=== PATIENT | female | born 1965 | race Caucasian/White ===

== ENCOUNTER 2018-05-05 12:57 | Inpatient (IN) | END 2018-05-07 17:55 | disposition home health service (06) | DRG 300 ==

== ENCOUNTER 2018-05-13 15:14 | Outpatient (CLI) | END 2018-05-13 16:42 | disposition home or self-care (01) ==

== ENCOUNTER 2018-11-08 14:11 | Emergency (ER) | payer OTHER ==
[~2018-11-08] VITALS: Wt 113.6 kg
[~2018-11-08 14:11] MED LIST: DOCU-216 PO; HYDR-3601 PO; POLY17PO3 PO; SILV20CR12 TOP; SODI473S16 IRR; WARF6TAB48 PO
[2018-11-08 14:13] VITALS: BP 139/75; PULSE 65; RESP 20; Wt 113.6 kg
[2018-11-08] MEDS ORDERED: CEPH-443 PO (15:51)
--- NOTE | 2018-11-08 15:58 | ERD ---
ER Documentation Chief Complaint Chief Complaint wound to l. foot w burning, previous hx of cellulitis to same site HPI 52-year-old female patient past medical history of chronic venous stasis presents to the ED complaining of an ulcer that she has developed to her left lower extremity that started about 3 weeks ago. She has been followed up for her chronic ulcer of her right lower extremity and patient reports that she has been applying Santyl ointment and feels like the left leg has not gotten better, however the right leg has gotten better. Patient reports that this is new and has not followed up with amputation center. Patient denies having any fever, increased redness or swelling. States that she was not able to get an appointment with Dr. Reese today. ROS All systems reviewed and are negative except as per history of present illness. Medications Home Meds Active Scripts Cephalexin* (Keflex*) 500 Mg Capsule, 500 MG PO QID for 7 Days, CAP Prov:NILDA BLAIR PA-C 11/08/18 Silver Sulfadiazine* (Silvadene*) 1% - 20 Gm Cream.gm., 1 APPLIC TOP DAILY for 30 Days, #1 TUB 3 Refills Prov:NAY COBB MD 05/07/18 Polyethylene Glycol* (Polyethylene Glycol*) 17 Gm Powd.pack, 17 GM PO DAILY for 30 Days, #30 PACKET Prov:NAY COBB MD 05/07/18 Docusate Sodium (Dok) 100 Mg Capsule, 100 MG PO BID PRN for Constipation for 30 Days, #60 CAP Prov:NAY COBB MD 05/07/18 Sodium Hypochlorite (H-CHLOR 12) 473 Ml Solution, 1 APPLIC IRR DAILY for 30 Days, #1 BOTTLE 3 Refills Prov:NAY COBB MD 05/07/18 Hydrocodone Bit-Acetaminophen (Hydrocodone Bit-APAP) 5-325MG Tablet, 1 TAB PO Q4H PRN for PAIN LEVEL 4-6 for 10 Days, #30 TAB Prov:NAY COBB MD 05/07/18 Reported Medications Warfarin Sodium* (Warfarin Sodium*) 6 Mg Tablet, 9 MG PO DAILY, TAB 05/03/18 Allergies Allergies: Coded Allergies: No Known Allergy (Unverified , 05/03/18) PMhx/Soc History of Surgery: Yes (SKIN GRAFT) Anesthesia Reaction: No Hx Neurological Disorder: No Hx Respiratory Disorders: No Hx Cardiac Disorders: No Hx Psychiatric Problems: No Hx Miscellaneous Medical Probl: Yes (DVT, varices) Hx Alcohol Use: No Hx Substance Use: No Hx Tobacco Use: No Smoking Status: Never smoker FmHx Family History: No diabetes, No coronary disease Physical Exam Vitals Vital Signs Date Temp Pulse Resp B/P (MAP) Pulse Ox O2 O2 Flow FiO2 Time Delivery Rate 11/08/18 98.9 65 20 139/75 98 14:13 (96) Physical Exam Const: [id number], well-nourished. In no acute distress. Head: Atraumatic, normocephalic Eyes: Normal Conjunctiva without injection ENT: Normal external ear, nose and mouth. Neck: Full range of motion. No meningismus. Resp: Clear to auscultation bilaterally. No wheezing, rhonchi, rales, or crackles. No accessory muscle use. No retractions. Cardio: Regular rate and rhythm, no murmurs Skin: No petechiae or rashes Back: No midline tenderness. No CVA tenderness. Ext: No cyanosis, or edema. Cap refill less than 2 seconds. Distal pulses intact bilaterally. 5 cm x 4 cm ulcer noted of the left lower extremity with no surrounding erythema, warmth to touch. No purulent discharge noted. Full range of motion of the bilateral knees, bilateral ankles. Neur: Awake and alert. Normal gait and coordination. Muscle strength 5/5. Sensation intact bilaterally. Psych: Normal Mood and Affect Procedures/MDM 52-year-old female patient with a past medical history of chronic venous disease presents the ED complaining of left ulcer noted on her leg. Patient is afebrile and nontoxic-appearing. There is no surrounding erythema, purulent discharge, calf pain, no cords noted. Patient likely has a venous ulcer. Patient's extremity symptoms have stabilized while they have been evaluated in the department and are appropriate for outpatient follow up. No evidence of fractures, dislocations, compartment syndrome, neurologic injury, vascular injury, open joint, open fracture, tendon laceration, septic arthritis, osteomyelitis, DVT, foreign body, or other emergent conditions. Diagnosis: Leg Leg Ulcer Discharge medications: Keflex Follow up with primary care physician in 1-2 days. Instructed patient to return to the ED sooner for any worsening symptoms. Patient's questions were answered. Patient is hemodynamically stable. Patient understood and agreed with discharge plan. Patient discharged stable. Disclaimer: Inadvertent spelling and grammatical errors are likely due to EHR/dictation software use and do not reflect on the overall quality of patient care. Also, please note that the electronic time recorded on this note does not necessarily reflect the actual time of the patient encounter. Departure Diagnosis: Primary Impression: Leg ulcer, left Non-pressure ulcer stage: unspecified non-pressure ulcer stage Qualified Codes: L97.929 - Non-pressure chronic ulcer of unspecified part of left lower leg with unspecified severity Condition: Stable Patient Instructions: Venous Leg Ulcer Referrals: MAXWELL REESE M.D. [facility] YOU HAVE RECEIVED A MEDICAL SCREENING EXAM AND THE RESULTS INDICATE THAT YOU DO NOT HAVE A CONDITION THAT REQUIRES URGENT TREATMENT IN THE EMERGENCY DEPARTMENT. FURTHER EVALUATION AND TREATMENT OF YOUR CONDITION CAN WAIT UNTIL YOU ARE SEEN IN YOUR DOCTORS OFFICE WITHIN THE NEXT 1-2 DAYS. IT IS YOUR RESPONSIBILITY TO MAKE AN APPOINTMENT FOR FOLOW-UP CARE. IF YOU HAVE A PRIMARY DOCTOR --you should call your primary doctor and schedule an appointment IF YOU DO NOT HAVE A PRIMARY DOCTOR YOU CAN CALL OUR PHYSICIAN REFERRAL HOTLINE AT IF YOU CAN NOT AFFORD TO SEE A PHYSICIAN YOU CAN CHOSE FROM THE FOLLOWING [facility] [address] [facility]. [facility] [address] [facility] [facility] [address] [facility] [facility] [address] [facility] [address] [facility]. [facility]. [address] [facility]. [facility] YOU HAVE RECEIVED A MEDICAL SCREENING EXAM AND THE RESULTS INDICATE THAT YOU DO NOT HAVE A CONDITION THAT REQUIRES URGENT TREATMENT IN THE EMERGENCY DEPARTMENT. FURTHER EVALUATION AND TREATMENT OF YOUR CONDITION CAN WAIT UNTIL YOU ARE SEEN I N YOUR DOCTORS OFFICE WITHIN THE NEXT 1-2 DAYS. IT IS YOUR RESPONSIBILITY TO MAKE AN APPOINTMENT FOR FOLOW-UP CARE. IF YOU HAVE A PRIMARY DOCTOR --you should call your primary doctor and schedule and appointment IF YOU DO NOT HAVE A PRIMARY DOCTOR YOU CAN CALL OUR PHYSICIAN REFERRAL HOTLINE AT . IF YOU CAN NOT AFFORD TO SEE A PHYSICIAN YOU CAN CHOSE FROM THE FOLLOWING [facility] INSTITUTIONS: [facility] [address] [place] [address] [facility] [address] [place] [address] [facility] [address] [place] [address] [facility] Additional Instructions: Llame al doctor MAANA y radha jacqueline NAZARIO PARA DENTRO DE 2-3 SULLIVAN.Dgale a la secretaria que nosotros le instruimos hacer esta nazario.Avise o llame si law condicin se empeora antes de la nazario. Regresa aqui si peor o no mejor. NILDA BLAIR PA-C Nov 08, 2018 15:58
== END 2018-11-08 15:59 | disposition home or self-care (01) ==
LOC: FTE 14:11
DX: L97.929 Non-pressure chronic ulcer of unspecified part of left lower leg with unspecified severity (principal)
CPT/HCPCS: 99283

== ENCOUNTER 2018-11-15 08:56 | Emergency (ER) | payer OTHER ==
[~2018-11-15] VITALS: Ht 152.4 cm; Wt 111.9 kg
[~2018-11-15 08:56] MED LIST changes: +CEPH-443 PO; +POLY17PO28 PO; -POLY17PO3 PO
[2018-11-15 09:00] VITALS: BP 171/94; PULSE 70; RESP 18; Ht 152.4 cm; Wt 111.9 kg
[2018-11-15] MEDS ORDERED: TRAM50TA2 PO (10:22)
--- NOTE | 2018-11-15 10:24 | ERD ---
ER Documentation Chief Complaint Chief Complaint left leg pain hx varicose veins HPI This 52-year-old female presents with a history of chronic left lower extremity ulcer. She is under the care of amputation prevention center. She complains of pain. She denies any fevers, worsening redness, bleeding or discharge. She is taking Keflex and Naprosyn. ROS All systems reviewed and are negative except as per history of present illness. Medications Home Meds Active Scripts Tramadol HCl (Tramadol HCl) 50 Mg Tablet, 50 MG PO Q4 PRN for PAIN, #18 TAB Prov:DELICIA STUART MD 11/15/18 Cephalexin* (Keflex*) 500 Mg Capsule, 500 MG PO QID for 7 Days, CAP Prov:NILDA BLAIR PA-C 11/08/18 Silver Sulfadiazine* (Silvadene*) 1% - 20 Gm Cream.gm., 1 APPLIC TOP DAILY for 30 Days, #1 TUB 3 Refills Prov:NAY COBB MD 05/07/18 Polyethylene Glycol* (Polyethylene Glycol*) 17 Gm Powd.pack, 17 GM PO DAILY for 30 Days, #30 PACKET Prov:NAY COBB MD 05/07/18 Docusate Sodium (Dok) 100 Mg Capsule, 100 MG PO BID PRN for Constipation for 30 Days, #60 CAP Prov:NAY COBB MD 05/07/18 Sodium Hypochlorite (H-CHLOR 12) 473 Ml Solution, 1 APPLIC IRR DAILY for 30 Days, #1 BOTTLE 3 Refills Prov:NAY COBB MD 05/07/18 Hydrocodone Bit-Acetaminophen (Hydrocodone Bit-APAP) 5-325MG Tablet, 1 TAB PO Q4H PRN for PAIN LEVEL 4-6 for 10 Days, #30 TAB Prov:NAY COBB MD 05/07/18 Reported Medications Warfarin Sodium* (Warfarin Sodium*) 6 Mg Tablet, 9 MG PO DAILY, TAB 05/03/18 Allergies Allergies: Coded Allergies: No Known Allergy (Unverified , 11/15/18) PMhx/Soc History of Surgery: Yes (SKIN GRAFT) Anesthesia Reaction: No Hx Neurological Disorder: No Hx Respiratory Disorders: No Hx Cardiac Disorders: No Hx Psychiatric Problems: No Hx Miscellaneous Medical Probl: Yes (DVT, varices) Hx Alcohol Use: No Hx Substance Use: No Hx Tobacco Use: No Smoking Status: Never smoker FmHx Family History: No diabetes, No coronary disease, No other Physical Exam Vitals Vital Signs Date Temp Pulse Resp B/P (MAP) Pulse Ox O2 O2 Flow FiO2 Time Delivery Rate 11/15/18 97.1 70 18 171/94 98 09:00 (119) Physical Exam Const: No acute distress Head: Atraumatic Eyes: Normal Conjunctiva ENT: Normal External Ears, Nose and Mouth. Neck: Full range of motion. No meningismus. Resp: Clear to auscultation bilaterally Cardio: Regular rate and rhythm, no murmurs Abd: Soft, non tender, non distended. Normal bowel sounds Skin: No petechiae or rashes. left medial lower extremity ulcer approximate stage III in the area of the distal tibia. No significant erythema, streaking, induration. Wound bed is healing with fibrin exudate without bleeding, purulent discharge. Back: No midline or flank tenderness Ext: No cyanosis, or edema Neur: Awake and alert Psych: Normal Mood and Affect Procedures/MDM She presents with what appears to be a satisfactorily healing left lower extremity venous stasis ulcer without signs of significant cellulitis, ischemia, deficits, necrotizing fasciitis. She will be discharged home after wound care here and redressing. She is advised to continue Keflex and regular wound care with her primary doctor and specialist. We will add tramadol for her primary complaints of pain. The patient was stable with no new complaints during the ER course. Clinically, there is no current evidence to suggest meningitis, sepsis, acute abdomen, pneumonia, stroke, acute coronary syndrome, pulmonary embolism, aortic dissection or any other emergent condition appearing to require further evaluation or hospitalization. Patient counseled regarding my diagnostic impression and care plan. Prior to discharge all questions answered. Pt agrees with treatment plan and understands strict return precautions. Pt is instructed to follow up with primary care provider within 24-48 hours. Precautionary instructions provided including instructions to return to the ER if not improving or for any worsening or changing symptoms or concerns. Departure Diagnosis: Primary Impression: Venous stasis ulcer Venous stasis ulcer site: other site Varicose vein presence: without v aricose veins Non-pressure ulcer stage: with fat layer exposed Qualified Codes: I87.2 - Venous insufficiency (chronic) (peripheral); L97.802 - Non- pressure chronic ulcer of other part of unspecified lower leg with fat layer exposed Condition: Stable Patient Instructions: Venous Leg Ulcer Additional Instructions: contiuna carlos manuel con specialistas de ulcuras. Cheque otro vez con law doctor primario en el proximo stevenson or regresa para mas o nueva simptomas. DELICIA STUART MD Nov 15, 2018 10:24
== END 2018-11-15 10:36 | disposition home or self-care (01) ==
LOC: FTE 08:56
DX: I87.2 Venous insufficiency (chronic) (peripheral) (principal); L97.802 Non-pressure chronic ulcer of other part of unspecified lower leg with fat layer exposed
CPT/HCPCS: 99283

== ENCOUNTER 2019-03-23 15:58 | Emergency (ER) | payer OTHER ==
[~2019-03-23] VITALS: Ht 162.6 cm; Wt 106.5 kg
[~2019-03-23 15:58] MED LIST changes: +TRAM50TA2 PO
[2019-03-23 16:00] VITALS: BP 137/67; PULSE 61; RESP 20; Ht 162.6 cm; Wt 106.5 kg
[2019-03-23] MEDS ORDERED: CLOT30CR24 TOP (16:37)
--- NOTE | 2019-03-23 16:47 | ERD ---
ER Documentation Chief Complaint Chief Complaint c/o generalized rash x4 days. No stridor. HPI Patient is a 53-year-old female with past medical history of DVT, currently on Coumadin, who presents the ER for concerns of a rash for the last 4 days. Patient states rash is below her bilateral breasts and in her axilla. Patient states the rash is itchy new creams or lotions. Patient denies any recent travel.. Patient denies any fevers or chills. Patient denies any lip swelling, tongue swelling, difficulty breathing, chest pain, chest tightness or LOC. Patient states Dr. Arthur is her primary care doctor he is managing her INR levels. Last INR check was 2 weeks ago. ROS All systems reviewed and are negative except as per history of present illness. Medications Home Meds Active Scripts Clotrimazole* (Clotrimazole* AF) 1% - 30 Gm Cream.gm., 1 APPLIC TOP BID for 7 Days, TUB Prov:AZIZA DEL RIO PA-C 03/23/19 Tramadol HCl (Tramadol HCl) 50 Mg Tablet, 50 MG PO Q4 PRN for PAIN, #18 TAB Prov:DELICIA STUART MD 11/15/18 Cephalexin* (Keflex*) 500 Mg Capsule, 500 MG PO QID for 7 Days, CAP Prov:NILDA BLAIR PA-C 11/08/18 Silver Sulfadiazine* (Silvadene*) 1% - 20 Gm Cream.gm., 1 APPLIC TOP DAILY for 30 Days, #1 TUB 3 Refills Prov:NAY COBB MD 05/07/18 Polyethylene Glycol* (Polyethylene Glycol*) 17 Gm Powd.pack, 17 GM PO DAILY for 30 Days, #30 PACKET Prov:NAY COBB MD 05/07/18 Docusate Sodium (Dok) 100 Mg Capsule, 100 MG PO BID PRN for Constipation for 30 Days, #60 CAP Prov:NAY COBB MD 05/07/18 Sodium Hypochlorite (H-CHLOR 12) 473 Ml Solution, 1 APPLIC IRR DAILY for 30 Days, #1 BOTTLE 3 Refills Prov:NAY COBB MD 05/07/18 Hydrocodone Bit-Acetaminophen (Hydrocodone Bit-APAP) 5-325MG Tablet, 1 TAB PO Q4H PRN for PAIN LEVEL 4-6 for 10 Days, #30 TAB Prov:NAY COBB MD 05/07/18 Reported Medications Warfarin Sodium* (Warfarin Sodium*) 6 Mg Tablet, 9 MG PO DAILY, TAB 05/03/18 Allergies Allergies: Coded Allergies: No Known Allergy (Unverified , 11/15/18) PMhx/Soc History of Surgery: Yes (SKIN GRAFT) Anesthesia Reaction: No Hx Neurological Disorder: No Hx Respiratory Disorders: No Hx Cardiac Disorders: No Hx Psychiatric Problems: No Hx Miscellaneous Medical Probl: Yes (DVT, varices) Hx Alcohol Use: No Hx Substance Use: No Hx Tobacco Use: No FmHx Family History: No diabetes Physical Exam Vitals Vital Signs Date Temp Pulse Resp B/P (MAP) Pulse Ox O2 O2 Flow FiO2 Time Delivery Rate 03/23/19 97.2 61 20 137/67 98 16:00 (90) Physical Exam GENERAL: Well-developed, well-nourished female. Appears in no acute distress. HEAD: Normocephalic, atraumatic. EYES: Pupils are equally reactive bilaterally. EOMs grossly intact. No conju nctival erythema. ENT: Moist mucous membranes. No uvula deviation. No kissing tonsils. NECK: Supple. No meningismus. Normal range of motion of the neck. LUNG: Clear to auscultation bilaterally. No rhonchi, wheezing, rales or coarse breath sounds. HEART: Regular rate and rhythm. No murmurs, rubs or gallops. EXTREMITIES: Equal pulses bilaterally. No peripheral clubbing, cyanosis or edema. No unilateral leg swelling. NEUROLOGIC: Alert and oriented. Moving all four extremities without any difficulty. Normal speech. Steady gait. SKIN: Erythematous, excoriated skin noted in bilateral axillas as well as below the breast consistent with intertrigo. No warmth or swelling. No active bleeding or discharge. Procedures/MDM MEDICAL DECISION MAKING: This is a 53-year-old female presents the ER for concerns of a rash x4 days. Patient states that the rash is itchy. Rash is localized to the bilateral axilla and below the breast. Vital signs were reviewed. Patient was afebrile. Patient is not diabetic. Physical exam findings are consistent with intertrigo. Patient will be given prescription for clotrimazole. Low suspicion for necrotizing fasciitis, sepsis, gangrene, Phoenix-Tommie syndrome, toxic epidural necrolysis, abscess, cellulitis, herpes zoster, viral exanthem, anaphylaxis, allergic reaction, she was nontoxic, [id number] prior to discharge. PRESCRIPTIONS: Clotrimazole ointment DISCHARGE: At this time, patient is stable for discharge and outpatient management. I have advised the patient to avoid any new products, creams or possible allergens. I have advised the patient to avoid scratching the lesions. I have instructed the patient to follow-up with his/her primary care physician in 1-2 days. If symptoms persist, patient may need to see a commercial real estate attorney for further examinations and testing. I have instructed the patient to promptly return to the ER at any time for any new or worsening symptoms including increased pain, fever, redness, swelling, warmth, difficulty breathing or vomiting. The patient and/or family expressed understanding of and agreement with this plan. All questions were answered. Home care instructions were provided. Disclaimer: Inadvertent spelling and grammatical errors are likely due to EHR/dictation software use and do not reflect on the overall quality of patient care. Also, please note that the electronic time recorded on this note does not necessarily reflect the actual time of the patient encounter. Departure Diagnosis: Primary Impression: Candidiasis Condition: Fair Patient Instructions: Tinea Cruris, General Referrals: [facility] YOU HAVE RECEIVED A MEDICAL SCREENING EXAM AND THE RESULTS INDICATE THAT YOU DO NOT HAVE A CONDITION THAT REQUIRES URGENT TREATMENT IN THE EMERGENCY DEPARTMENT. FURTHER EVALUATION AND TREATMENT OF YOUR CONDITION CAN WAIT UNTIL YOU ARE SEEN IN YOUR DOCTORS OFFICE WITHIN THE NEXT 1-2 DAYS. IT IS YOUR RESPONSIBILITY TO MAKE AN APPOINTMENT FOR FOLOW-UP CARE. IF YOU HAVE A PRIMARY DOCTOR --you should call your primary doctor and schedule an appointment IF YOU DO NOT HAVE A PRIMARY DOCTOR YOU CAN CALL OUR PHYSICIAN REFERRAL HOTLINE AT IF YOU CAN NOT AFFORD TO SEE A PHYSICIAN YOU CAN CHOSE FROM THE FOLLOWING [facility] CLINICS [facility] [address] [facility] [address] [facility] [address] [facility] [address] [facility] [address] [facility]. [facility] [address] [facility]. [facility] YOU HAVE RECEIVED A MEDICAL SCREENING EXAM AND THE RESULTS INDICATE THAT YOU DO NOT HAVE A CONDITION THAT REQUIRES URGENT TREATMENT IN THE EMERGENCY DEPARTMENT. FURTHER EVALUATION AND TREATMENT OF YOUR CONDITION CAN WAIT UNTIL YOU ARE SEEN IN YOUR DOCTORS OFFICE WITHIN THE NEXT 1-2 DAYS. IT IS YOUR RESPONSIBILITY TO MAKE AN APPOINTMENT FOR FOLOW-UP CARE. IF YOU HAVE A PRIMARY DOCTOR --you should call your primary doctor and schedule and appointment IF YOU DO NOT HAVE A PRIMARY DOCTOR YOU CAN CALL OUR PHYSICIAN REFERRAL HOTLINE AT . IF YOU CAN NOT AFFORD TO SEE A PHYSICIAN YOU CAN CHOSE FROM THE FOLLOWING [facility] INSTITUTIONS: [facility] [address] [place] [address] [facility] [address] [place] [address] [facility] [address] [place] [address] Additional Instructions: Llame al doctor MAANA y radha jacqueline NAZARIO PARA DENTRO DE 1-2 SULLIVAN.Dgale a la secretaria que nosotros le instruimos hacer esta nazario.Avise o llame si law condicin se empeora antes de la nazario. Regresa aqui si peor o no mejor. AZIZA DEL RIO PA-C March 23, 2019 16:47
== END 2019-03-23 17:09 | disposition home or self-care (01) ==
LOC: FTE 15:58
DX: B37.9 Candidiasis, unspecified (principal); Z79.01 Long term (current) use of anticoagulants
CPT/HCPCS: 99282